=== PATIENT | male | born 1985 | race Two or more races ===

== ENCOUNTER 2020-04-29 11:51 | Emergency (ER) | payer OTHER ==
[~2020-04-29] VITALS: Ht 180.3 cm; Wt 127.0 kg
--- NOTE | 2020-04-30 19:05 | PATH ---
[facility] [address] [place], [place] [address] Signed ORDERING PHYSICIAN: Abilio Desir MD PATIENT NAME: MATT TOLEDO GENDER: M : 1985 Prior History: No cases found. SPECIMEN(S): No Source Given MOLECULAR PATHOLOGY RESULTS: SARS-CoV-2 DETECTED ADDITIONAL NOTES.: The [employer] Fusion SARS-CoV-2 Assay is a multiplex real-time PCR (RT-PCR) in vitro diagnostic test intended for the qualitative detection of RNA from SARS-CoV-2 from individuals who meet COVID-19 clinical and/or epidemiological criteria. In general, SARS-CoV-2 RNA can be detected during the acute phase of infection. Positive results indicate the presence of SARS-CoV-2 RNA. Clinical correlation with patient history and other diagnostic information is necessary to determine patient infection status. Positive results do not rule out bacterial infection or co-infection with other viruses. Negative results do not preclude SARS-CoV-2 infection and should not be used as the sole basis for patient management decisions. Negative results must be combined with other clinical observations, patient history, and epidemiological information. The Arbuckle Fusion SARS-CoV-2 Assay is not yet approved or cleared by the [place] FDA. When there are no FDA-approved or cleared tests available, and other criteria are met, FDA can make tests available under an emergency access mechanism called an Emergency Use Authorization (EUA). The EUA for this test is supported by the [place] of Health and Human Service's (HHS's) declaration that circumstances exist to justify the emergency use of in vitro diagnostics for the detection and/or diagnosis of the virus that causes COVID-19. This EUA will remain in effect for the duration of the COVID-19 declaration justifying emergency of IVDs, unless it is terminated or revoked by FDA, after which the test may no longer be used. The Arbuckle Fusion SARS-CoV-2 Assay is for use only under EUA PATIENT NAME: MATT TOLEDOJanet PATHOLOGY DATE OF : 83 REPORT #: [id number] PHYSICIAN: GENIA MCCLAIN PCP: DEEPAK WOLFF DO REPORT IS CONFIDENTIAL AND NOT TO BE RELEASED WITHOUT AUTHORIZATION [facility] [address] [place] [address] [place], [place] [address] Signed in laboratories certified under the Clinical Laboratory Improvement Amendments of 1988 (CLIA) to perform high complexity tests. [facility] is certified under CLIA to perform high complexity clinical laboratory testing. PERFORMING LABORATORY.: Molecular testing was performed by [facility] [address] [place] [address] [place] [address] (Delivery Sales Worker: Mono Jones D.O.; CLIA#: [id number]) Diagnostician: System Interface Pathologist Electronically Signed 04/30/2020 Copies: ~ PATIENT NAME: MATT TOLEDO JEFEJanet PATHOLOGY DATE OF : [birth year] REPORT #: [id number] PHYSICIAN: GENIA MCCLAIN PCP: DEEPAK WOLFF DO REPORT IS CONFIDENTIAL AND NOT TO BE RELEASED WITHOUT AUTHORIZATION
== END 2020-04-29 12:49 | disposition home or self-care (01) ==
LOC: ED 11:51
DX: B34.9 Viral infection, unspecified (principal)
CPT/HCPCS: 99284; C9803

== ENCOUNTER 2020-05-08 10:59 | Emergency (ER) | payer OTHER ==
[~2020-05-08] VITALS: Ht 180.3 cm; Wt 127.0 kg
--- OUTSIDE RECORDS SUMMARY | 2020-05-08 11:02 | XMS ---
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 [facility] has no Care Guidelines for this patient. Antoine VISIT COUNT (12 MO.) [address] [facility] TOTAL 2 NOTE: Visits indicate total known visits. ED/C VISIT TRACKING (12 MO.) 05/08/2020 11:00 [facility] [place] TYPE: Emergency COMPLAINT: - FLU SYMPTOMS 04/29/2020 11:51 [facility] [place] TYPE: Emergency COMPLAINT: - FEVER, HEADACHE DIAGNOSES: - Headache, unspecified - HEADACHE, UNSPECIFIED - Viral infection, unspecified INPATIENT VISIT TRACKING (12 MO.) No inpatient visits to display in this time frame [email or web address]
[2020-05-08] MEDS ORDERED: PREDNISONE20 MG PO (14:26)
[2020-05-08] MEDS ORDERED: ZITHROMAX250 MG PO (14:26)
--- NOTE | 2020-05-08 15:50 | EKG ---
[facility] [address] [facility] [place], [place] [address] Signed Sinus tachycardia Otherwise normal ECG No previous ECGs available Confirmed by VERONA SOTO MD ([id number]) on 05/08/2020 3:50:12 PM Electronically Signed By: VERONA SOTO MD 05/08/20 1550 PATIENT NAME: MATT TOLEDO [facility] Electrocardiogram DATE OF : 83 PHYSICIAN: VERONA SOTO MD REPORT #: [id number] REPORT IS CONFIDENTIAL AND NOT TO BE RELEASED WITHOUT AUTHORIZATION
== END 2020-05-08 15:52 | disposition home or self-care (01) ==
LOC: ED 10:59
DX: U07.1 COVID-19 (principal); J12.89 Other viral pneumonia
CPT/HCPCS: 71045; 71260; 80053; 81001; 83605; 85025; 85379; 93005; 93010; 94640; 94664; 99285-25; J1100; J7030; Q9967